=== PATIENT | male | born 1960 | race Caucasian/White ===

== ENCOUNTER 2018-11-25 19:06 | Observation (INO) ==
[2018-11-26] MEDS ORDERED: Bisacodyl 10 MG Supp RECTAL PRN (02:43)
[2018-11-26] MEDS ORDERED: Acetaminophen 325 MG Tablet PO PRN (02:43)
[2018-11-26] MEDS: Morphine Sulfate Inj 2 MG/ML Vial IV.PUSH PRN ×2 (03:06→19:49)
[2018-11-26] MEDS: Sod Chloride 0.9% Inj 1,000 ML IV.CONT SCH ×3 (03:06→22:48)
--- NOTE | 2018-11-26 10:53 | P.HPIM ---
History of Present Illness Primary Care Physician: UNKNOWN Chief Complaint: Abdominal pain History of Present Illness: This is a very pleasant 58-year-old male patient with a known medical history of GERD, history of Lyme disease, hypertension, hyperlipidemia presented to the ED with complaints of intractable abdominal pain. Patient states that over the course of the last 4 days he has had intermittent abdominal pain worse when he eats. He states that the pain is cramping in nature and is diffuse across his abdomen worse in his right upper quadrant. Patient rated the pain 15 out of 10 at its worst on pain scale. He states that the pain continues for several minutes and then goes away on its own. Denies any known alleviating factors. Patient does admit to dry heaving and nausea, denies any actual vomiting or diarrhea, denies any recent black or bloody stools. Last bowel movement was 2 days ago and was normal in appearance. Patient states he drove from [place] and has been active over the past few days, he states that he has been outside as well and has not been hydrating. He relates all of his symptoms to possible dehydration. He states he feels much improved with IV fluids. Denies any recent fevers, chills, headache, diarrhea or dysuria. Does follow with a analysis engineer up [place] in [place], he undergoes colonoscopies regularly as last one was a few years ago and is due for one next year. He does have EGDs as well, had a dilation and is due for one probably next year as well. Awaiting gallbladder ultrasound. Thoracic aorta CT done in the ED did not show any significant for his pain, ruled out aneurysm or dissection. On assessment today feels much improved. States Review of Systems Review of Systems: all other systems reviewed are negative [facility] Medical History Medical History Cyst (Acute) GERD (gastroesophageal reflux disease) (Acute) HTN (hypertension) (Acute) Hypercholesteremia (Acute) Kidney stones (Acute) Surgical History Surgical History H/O knee surgery (Acute) H/O shoulder surgery (Acute) Previous back surgery (Acute) S/P appendectomy (Acute) Social History Social History Substance History: No History of Abuse Second Hand Smoke Exposure: No Smoking Status: Former smoker Tobacco Type: Cigarettes How Often Do You Have a Drink Containing Alcohol: 2 to 4 times a month Immunization History Tetanus Immunization: Unsure Hx Influenza Vaccine This Season: Yes Medications and Allergies Allergies Allergy/AdvReac Type Severity Reaction Status Date / Time iodine Allergy Severe Anaphylaxis Verified 11/25/18 20:10 Home Medications Medication Instructions Recorded Confirmed Type Lipitor 11/25/18 History Nexium 40 mg PO DAILY 11/25/18 11/25/18 History Vitamin D3 11/25/18 History Zocor 11/25/18 History magnesium 11/25/18 History metoprolol tartrate 11/25/18 History potassium 11/25/18 History Active Medications: Active Medications Acetaminophen (Tylenol) 650 mg PO Q4H PRN PRN Reason: Temp > 100.4 Al Hydroxide/Mg Hydroxide (Milk Of Magnesia Liq) 30 ml PO Q12H PRN PRN Reason: Mild Constipation Bisacodyl (Dulcolax Supp) 10 mg RECTAL DAILY PRN PRN Reason: SEVERE CONSITIPATION Sodium Chloride (Ns Inj) 1,000 mls @ 100 mls/hr IV.CONT .Q10H [facility] Last Admin: 11/26/18 03:06 Dose: 100 mls/hr Morphine Sulfate (Morphine Inj) 2 mg IV.PUSH Q3H PRN PRN Reason: pain > 4 Last Admin: 11/26/18 03:06 Dose: 2 mg Ondansetron HCl (Zofran Inj) 4 mg IV.PUSH Q6H PRN PRN Reason: NAUSEA OR VOMITING Sennosides (Senokot) 17.2 mg PO Q12H PRN PRN Reason: Moderate Constipation Sodium Chloride (Ns Flush) 2 ml IV.FLUSH BID [facility] Last Admin: 11/26/18 08:07 Dose: Not Given Sodium Chloride (Ns Flush) 2 ml IV.FLUSH PRN PRN PRN Reason: FLUSH AFTER USING IV ACCESS Physical Exam Vital signs: Vital Signs 11/26/18 02:43 11/26/18 08:00 Temperature 96.6 F L 96.8 F L Pulse Rate 92 H 93 H Respiratory Rate 18 20 Blood Pressure 165/86 H 130/85 Pulse Oximetry 94 L 95 Intake & Output 11/25/18 11/26/18 11/26/18 18:59 06:59 18:59 Weight 115.5 kg Other: # Voids 1 Date of Last Bowel Movement 11/25/18 Weight On Admission 115.5 kg Narrative: GENERAL: Well-developed, well-nourished patient in [place]. SKIN: Warm and dry. No rash. HEAD: Normocephalic. Atraumatic. EYES: Pupils equal and round. No scleral icterus. No injection or drainage. ENT: No nasal bleeding or discharge. Mucous membranes pink and moist. NECK: Supple. Trachea midline. CARDIOVASCULAR: Regular rate and rhythm. S1, S2 noted. No murmur appreciated. RESPIRATORY: No accessory muscle use. Clear to auscultation. Breath sounds equal bilaterally. GASTROINTESTINAL: Tenderness to right upper quadrant, active bowel sounds x4. Light distended, soft. MUSCULOSKELETAL: No obvious deformities. Extremities without clubbing, cyanosis , or edema. NEUROLOGICAL: Awake and alert. No obvious cranial nerve deficits. Motor grossly within normal limits. 5/5 muscle strength in bilateral upper and lower extremities. Normal speech. PSYCHIATRIC: Appropriate mood and affect; insight and judgment normal. Caprini VTE Risk Assessment Caprini VTE Risk Assessment: Moderate/High Risk (score >= 2) Caprini Risk Assessment Model: Point Value = 1 Point Value = 2 Point Value = 3 Point Value = 5 Age 41-60 Minor surgery BMI > 25 kg/m2 Swollen legs Varicose veins or History of unexplained or recurrent spontaneous Oral contraceptives or hormone replacement Sepsis (< 1 month) Serious lung disease, including pneumonia (< 1 month) Abnormal pulmonary function Acute myocardial infarction Congestive heart failure (< 1 month) History of inflammatory bowel disease Medical patient at bed rest Age 61-74 Arthroscopic surgery Major open surgery (> 45 min) Laparoscopic surgery (> 45 min) Malignancy Confined to bed (> 72 hours) Immobilizing plaster cast Central venous access Age >= 75 History of VTE Family history of VTE Factor V Leiden Prothrombin [id number] Lupus anticoagulant Anticardiolipin antibodies Elevated serum homocysteine Heparin-induced thrombocytopenia Other congenital or acquired thrombophilia Stroke (< 1 month) Elective arthroplasty Hip, pelvis, or leg fracture Acute spinal cord injury (< 1 month) Prophylaxis Regimen: Total Risk Factor Score Risk Level Prophylaxis Regimen 0-1 Low Early ambulation 2 Moderate Order ONE of the following: *Sequential Compression Device (SCD) *Heparin 5000 units SQ BID 3-4 Higher Order ONE of the following medications: *Heparin 5000 units SQ TID *Enoxaparin/Lovenox 40 mg SQ daily (WT < 150 kg, CrCl > 30 mL/min) *Enoxaparin/Lovenox 30 mg SQ daily (WT < 150 kg, CrCl > 10-29 mL/min) *Enoxaparin/Lovenox 30 mg SQ BID (WT < 150 kg, CrCl > 30 mL/min) AND/OR *Sequential Compression Device (SCD) 5 or more Highest Order ONE of the following medications: *Heparin 5000 units SQ TID (Preferred with Epidurals) *Enoxaparin/Lovenox 40 mg SQ daily (WT < 150 kg, CrCl > 30 mL/min) *Enoxaparin/Lovenox 30 mg SQ daily (WT < 150 kg, CrCl > 10-29 mL/min) *Enoxaparin/Lovenox 30 mg SQ BID (WT < 150 kg, CrCl > 30 mL/min) AND *Sequential Compression Device (SCD) Assessment and Plan Plan This is a 58-year-old male patient with no medical history of hypertension, hyperlipidemia, GERD and liver disease who presented to the ED with complaints of abdominal pain. Intractable abdominal pain -Patient presented with 4-day history of worsening abdominal pain with nausea. -Thoracic aorta CT reviewed from ED showing no acute findings of the pain. Aortic dissection or aneurysm has been ruled out. Did show some hepatic steatosis. Awaiting gallbladder ultrasound. -Will continue on IV fluids. Patient states he feels much improved today. He does still have some tenderness in the right upper quadrant to patient. -CBC and BMP reviewed, essentially unremarkable. -Chest x-ray viewed and is negative for any acute findings. D-dimer is negative. -Pain medications with IV morphine as needed. Patient states that his pain is much improved. -Will keep n.p.o. for now for gallbladder ultrasound. Advance diet as tolerated after ultrasound. Hypertension, chronic -Patient will be continued on home medications. Continue to monitor blood pressure trends. Stable at this time. GERD -Will continue home medications including Nexium. DVT prophylaxis: SCDs. Encourage ambulation. The exam, history, and the medical decision-making described in the above note were completed with the assistance of the mid-level provider. I reviewed and agree with the findings presented. I attest that I had a [id number] encounter with the patient on the same day, and personally performed and documented my assessment and findings in the medical record. Presents with postprandial pain in the right upper quadrant Vital signs noted Right upper quadrant tenderness Gallbladder ultrasound with sludge Suspect cholecystitis obtain HIDA scan Symptomatic control H&P: Quality VTE Deep Vein Thrombosis/Pulmonary Embolism Present on Admission: No
--- NOTE | 2018-11-26 11:33 | US ---
EXAM DATE: 11/26/2018 11:22 AM EST AGE/SEX: 58 years / Male INDICATIONS: Right upper quadrant pain. CLINICAL DATA: This is the patient's initial encounter. Patient reports that signs and symptoms have been present for 2 days and indicates a pain score of 5/10. MEDICAL/SURGICAL HISTORY: . GERD. HTN. Hypercholesteremia. Kidney stones. . Knee surgery; r ight. Shoulder surgery; right. Back surgery. Appendectomy. COMPARISON: No prior exams available for comparison. MEASUREMENTS: Liver:__ 21.7 cm. Common Bile Duct:__ 4mm. FINDINGS: Liver: Increased echogenicity without focal lesion or ductal dilatation. Portal Vein: Hepatopedal flow seen in portal vein. Common Duct: No intraluminal mass or stone visualized. Gallbladder: No definite gallstones are demonstrated. However there is a small amount of sludge laye ring in the base of the gallbladder. The gallbladder wall is not thickened. Pancreas: The visualized portions are within normal limits Right Kidney: Normal in size and shape. There is no hydronephrosis. There is a cyst along the lower pole measuring 1.8 x 1.6 cm. Other: None. CONCLUSION: 1. There is increased echogenicity throughout the liver suggestive of fatty infiltration. The liver also appears to be enlarged. 2. Small amount of sludge in the gallbladder. This is nonspecific. No biliary tract obstruction. 3. Benign-appearing right renal cyst. Electronically signed by: Noam Mahmood MD Board Certified Radiologist 11/26/2018 11:32 AM EST
[2018-11-26] MEDS ORDERED: SODIUM CHLOR 0.9% IV.SIG ONE (14:00)
[2018-11-26] MEDS ORDERED: SINCALIDE IV.SIG ONE (14:00)
[2018-11-27 06:53] LABS: Baso # (Auto) 0.1 th/mm3 (0.0-0.2); Baso % (Auto) 1.1 % (0.0-2.0); Eos # (Auto) 0.1 th/mm3 (0.0-0.4); Eos % (Auto) 0.8 % (0.0-4.0); Hematocrit 42.7 % (39.0-51.0); Hemoglobin 14.1 gm/dL (13.0-17.0); Lymph # (Auto) 1.3 th/mm3 (1.0-4.8); Lymph % (Auto) 20.4 % (9.0-44.0); Mean Corpuscular Hemoglobin 32.6 pg (27.0-34.0); Mean Corpuscular Volume 98.6 fL (80.0-100.0); Mean Platelet Volume 8.6 fL (7.0-11.0); Mono # (Auto) 0.6 th/mm3 (0.0-0.9); Mono % (Auto) 8.7 % (0.0-8.0); Neut # (Auto) 4.4 th/mm3 (1.8-7.7); Platelet Count 236 th/mm3 (150-450); Red Blood Count 4.34 mil/mm3 (4.50-5.90); Red Cell Distribution Width 11.5 % (11.6-17.2); White Blood Count 6.5 th/mm3 (4.0-11.0)
[2018-11-27 07:01] LABS: Chloride 110 meq/L (98-107); Potassium 3.7 meq/L (3.5-5.1); Sodium 144 meq/L (136-145)
[2018-11-27 07:05] LABS: Blood Urea Nitrogen 19 mg/dL (7-18); Glucose,Random 98 mg/dL (74-106)
[2018-11-27 07:06] LABS: Anion Gap 7 meq/L (5-15); Calcium 8.3 mg/dL (8.5-10.1); Carbon Dioxide 27.2 meq/L (21.0-32.0)
[2018-11-27 07:08] LABS: Glomerular Filtration Rate Greater Than 89 mL/min (>89)
--- NOTE | 2018-11-27 08:03 | P.PNIM ---
Subjective Interval history: Follow-up abdominal pain. Patient seen and examined.HIDA scan today, depending on results surgery will be consulted. Patient did overall well overnight, denies any acute events. Denies any chest pain or shortness of breath. Vital signs are stable. Afebrile. Physical Exam Vital signs: Vital Signs 11/26/18 12:00 11/26/18 16:00 11/26/18 20:00 Temperature 97 F L 96.7 F L 96.9 F L Pulse Rate 101 H 99 H 93 H Respiratory Rate 20 18 20 Blood Pressure 124/65 164/96 H 161/98 H Pulse Oximetry 95 96 98 11/26/18 23:50 Temperature 97.9 F Pulse Rate 88 Respiratory Rate 20 Blood Pressure 157/79 H Pulse Oximetry 97 Intake & Output 11/26/18 11/27/18 11/27/18 18:59 06:59 18:59 Intake Total 975 / 975 1000 / 1000 Balance 975 / 975 1000 / 1000 Weight 116.2 kg Intake: IV 975 / 975 1000 / 1000 NS Inj 1,000 ML @ 100 mls/hr IV 975 / 975 1000 / 1000 .CONT .Q10H [facility] Rx#:[id number] Oral 0 / 0 Other: # Voids 4 4 Date of Last Bowel Movement 11/25/18 Narrative: GENERAL: Well-developed, well-nourished patient in [facility]. SKIN: Warm and dry. No rash. HEAD: Normocephalic. Atraumatic. EYES: Pupils equal and round. No scleral icterus. No injection or drainage. ENT: No nasal bleeding or discharge. Mucous membranes pink and moist. NECK: Supple. Trachea midline. CARDIOVASCULAR: Regular rate and rhythm. S1, S2 noted. No murmur appreciated. RESPIRATORY: No accessory muscle use. Clear to auscultation. Breath sounds equal bilaterally. GASTROINTESTINAL: Tenderness to right upper quadrant, active bowel sounds x4. Light distended, soft. MUSCULOSKELETAL: No obvious deformities. Extremities without clubbing, cyanosis , or edema. NEUROLOGICAL: Awake and alert. No obvious cranial nerve deficits. Motor grossly within normal limits. 5/5 muscle strength in bilateral upper and lower extremities. Normal speech. PSYCHIATRIC: Appropriate mood and affect; insight and judgment normal. Results Labs CBC & Chem 7: 11/27/18 05:05 11/27/18 05:05 Imaging Imaging: Impressions Gallbladder Ultrasound 11/26/18 00:00 CONCLUSION: 1. There is increased echogenicity throughout the liver suggestive of fatty infiltration. The liver also appears to be enlarged. 2. Small amount of sludge in the gallbladder. This is nonspecific. No biliary tract obstruction. 3. Benign-appearing right renal cyst. Assessment and Plan Plan This is a 58-year-old male patient with no medical history of hypertension, hyperlipidemia, GERD and liver disease who presented to the ED with complaints of abdominal pain. Intractable abdominal pain, improving. -Patient presented with 4-day history of worsening abdominal pain with nausea. -Thoracic aorta CT reviewed from ED showing no acute findings of the pain. Aortic dissection or aneurysm has been ruled out. Did show some hepatic steatosis. Awaiting gallbladder ultrasound. -Will continue on IV fluids. Patient states he feels much improved today. He does still have some tenderness in the right upper quadrant to patient. -CBC and BMP reviewed, essentially unremarkable. -Chest x-ray viewed and is negative for any acute findings. D-dimer is negative. -Pain medications with IV morphine as needed. Patient states that his pain is much improved. -Will keep n.p.o. for now for HIDA scan. Depending on results, surgery may be consulted. Already spoke with general surgery yesterday. We will continue to monitor. Hypertension, chronic -Patient will be continued on home medications. Continue to monitor blood pressure trends. Stable at this time. GERD -Will continue home medications including Nexium. DVT prophylaxis: SCDs. Encourage ambulation. Discussed with patient, nursing and Dr. Montoya Progress Note: Quality VTE Deep Vein Thrombosis/Pulmonary Embolism Present on Admission: No
--- NOTE | 2018-11-27 09:55 | NM ---
EXAM DATE: 11/27/2018 9:47 AM EST AGE/SEX: 58 years / Male INDICATIONS: Abdominal pain with nausea and dry heaving. CLINICAL DATA: This is the patient's initial encounter. Patient reports that signs and symptoms have been present for 4 - 6 days and indicates a pain score of 10/10. MEDICAL/SURGICAL HISTORY: Gastroesophageal reflux disease. Hypercholesterolemia. Hypertension . Lyme disease. Appendectomy. Total knee replacement, right. Right shoulder and back. COMPARISON: No prior exams available for comparison. DOSE: 4.4 mCi Tc-99m mebrofenin i.v. Medication: 2.3 mcg Cholecystokinin IV No symptomatic response Cholecystokinin was administered by slow infusion over 8 minutes beginning at 60 min mallorie clive. TECHNIQUE: Following the intravenous administration of radiotracer, dynamic sequential images were pe rformed with continuous acquisition. Time-activity curves were generated. FINDINGS: Hepatic Kinetics: There is prompt uptake of radiotracer in the liver. No focal defects are seen. Ther e is normal rate of washout from the hepatic parenchyma. Biliary Clearance: Activity is first seen in the extrahepatic biliary system at 15 minutes. There is normal excretion into the small bowel. Gallbladder: Activity is first seen in the gallbladder at 15 minutes. Post-CCK: After CCK administration, there is mild gallbladder contraction with estimated ejection fra ction of approximately 20%. Common bile duct kinetics are normal and there is no evidence of biliary obstruction. No symptomatic response after cholecystokinin infusion. Biliary-Enteric Reflux: None observed. CONCLUSION: 1. Normal gallbladder visualization no evidence of biliary obstruction. 2. Approximately 20% calculated ejection fraction after CCK administration which is abnormal. The pa tieandreina was asymptomatic. Electronically signed by: Reuben Hernández MD Board Certified Radiologist 11/27/2018 9:53 AM EST
[2018-11-27 10:20] VITALS: RESP 18; O2SAT 99
[2018-11-27] MEDS ORDERED: Aluminum/Magnesium/Simethacone Susp 30 ML UDC PO ONE (11:32)
[2018-11-27] MEDS ORDERED: Sucralfate 1 GM Tablet PO ONE (11:33)
[2018-11-27] MEDS: Sod Chloride 0.9% Inj 1,000 ML IV.CONT SCH (11:52)
[2018-11-27] MEDS ORDERED: Pantoprazole Inj 40 MG Vial IV.PUSH SCH (12:00)
[2018-11-27 12:37] VITALS: BP 166/94; PULSE 95; TEMP 97.7
== END 2018-11-27 17:31 | disposition home or self-care (01) ==
LOC: PHEDDLT 11-26 01:45 → PH3 11-26 01:45
PROVIDERS: ADMIT Internal Medicine; ATTEND Internal Medicine
CPT/HCPCS: 71010; 71045; 71275; 74175; 76705; 78226; 80048; 80053; 84484; 85025; 85379; 90774; 90775; 90784; 93005; 96361; 96374; 96375; 96376; 99285; A9513; A9537; C1097; C8952; C9113; G0378; J1170; J1200; J2060; J2270; J2805; J2930; J7030; Q9967